=== PATIENT | female | born 1975 | race Caucasian/White ===

== ENCOUNTER 2018-08-09 08:47 | Day surgery (SDC) | payer BC ==
[2018-08-09] MEDS: SOD CHLORIDE 0.9% 1,000 ML IV (10:18)
[2018-08-09] MEDS ORDERED: CEFAZOLIN 1 GM/50 ML (PMX) 50 ML IVPB (14:47)
[2018-08-09] MEDS: CEFAZOLIN 1 GM/50 ML (PMX) 50 ML IVPB (14:48)
[2018-08-09] MEDS: LIDOCAINE 1%/EPI (1:100,000) (MDV) 20 ML (15:09)
[2018-08-09] MEDS: FENTAnyl 50 MCG/ML VIAL (15:12)
[2018-08-09] MEDS ORDERED: LIDOCAINE 1%/EPI (1:100,000) (MDV) 20 ML (15:22)
[2018-08-09] MEDS: POLYMYXIN/BACITRACIN 1L IRRIG IRR (15:40)
[2018-08-09] MEDS: HEPARIN 1000 UNITS/ML 10 ML INJ (15:44)
[2018-08-09] MEDS: ACETAMINOPHEN 325 MG TAB PO (17:34)
== END 2018-08-09 18:10 | disposition home or self-care (01) ==
LOC: RAD 08:47 → SDS 08:47 → RAD 18:10
DX: C50.911 Malignant neoplasm of unspecified site of right female breast (principal); C50.912 Malignant neoplasm of unspecified site of left female breast
CPT/HCPCS: 36561; 76942

== ENCOUNTER 2018-09-20 14:22 | Inpatient (IN) | payer BC ==
[2018-09-20] MEDS: PIPER-TAZO 3.375 GM IV (PMX) 100 ML IVPB ×2 (15:26→23:31)
[2018-09-20] MEDS: SODIUM CHLORIDE 0.9% 1L BAG IV* (15:26)
[2018-09-20 15:34] LABS: WHITE BLOOD COUNT 8.1 10^3/ul (4.8-10.8)
[2018-09-20 15:34] LABS: ABNORMAL IP MESSAGE 1; HEMATOCRIT 24.4 % (37.0-47.0); HEMOGLOBIN 8.1 g/dl (12.0-16.0); MEAN CORPUSCULAR HEMOGLOBIN 25.8 pg (29.0-33.0); MEAN CORPUSCULAR HGB CONC 33.2 g/dl (32.0-37.0); MEAN CORPUSCULAR VOLUME 77.7 fl (82.0-101.0); MEAN PLATELET VOLUME 12.1 fl (7.4-10.4); NUCLEATED RED BLOOD CELLS% 0.4 /100WBC (0.0-0.0); PLATELET COUNT 136 10^3/UL (140-415); RED BLOOD COUNT 3.14 10^6/ul (4.20-5.40); RED CELL DISTRIBUTION WIDTH 18.8 % (11.5-14.5)
[2018-09-20 15:50] LABS: ADD MAN DIFF? YES; POSITIVE DIFF @See below
[2018-09-20] MEDS: VANCOMYCIN 1 GM (PMX) 250 ML IVPB (15:51)
[2018-09-20 15:56] LABS: ALANINE AMINOTRANSFERASE 25 IU/L (13-69); ALBUMIN 3.6 g/dl (3.3-4.9); ALBUMIN/GLOBULIN RATIO 1.12; ALKALINE PHOSPHATASE 85 IU/L (42-121); ANION GAP 15 (5-13); ASPARTATE AMINO TRANSFERASE 29 IU/L (15-46); BILIRUBIN,INDIRECT 0.4 mg/dl (0-1.1); BILIRUBIN,TOTAL 0.4 mg/dl (0.2-1.3); BLOOD UREA NITROGEN 11 mg/dl (7-20); CALCIUM 8.7 mg/dl (8.4-10.2); CARBON DIOXIDE 21 mmol/L (21-31); CHLORIDE 105 mmol/L (97-110); CREATININE 1.11 mg/dl (0.44-1.00); Estimated GFR 53 mL/min (>60); GLUCOSE 110 mg/dl (70-220); SODIUM 141 mmol/L (135-144); TOTAL PROTEIN 6.8 g/dl (6.1-8.1)
[2018-09-20 16:11] LABS: POTASSIUM 2.2 mmol/L (3.5-5.1)
[2018-09-20 16:18] LABS: INR 1.25; PROTIME 15.8 Sec (11.9-14.9); PT RATIO 1.2
[2018-09-20 16:38] LABS: URINE BLOOD (Dip) POC 1+ (NEGATIVE); URINE GLUCOSE (Dip) POC Negative (NEGATIVE); URINE KETONES (Dip) POC Trace (NEGATIVE); URINE LEUKOCYTE EST (Dip) POC Negative (NEGATIVE); URINE NITRITE (Dip) POC Negative (NEGATIVE); URINE TOTAL PROTEIN POC 2+ (NEGATIVE)
[2018-09-20 16:52] LABS: ADD UMIC YES; UR ASCORBIC ACID NEGATIVE (NEGATIVE); UR BACTERIA FEW /HPF (NONE SEEN); UR BILIRUBIN (Dip) NEGATIVE (NEGATIVE); UR BLOOD (Dip) 1+ mg/dL (NEGATIVE); UR CLARITY CLOUDY (CLEAR); UR COLOR AMBER (YELLOW); UR GLUCOSE (Dip) NEGATIVE (NEGATIVE); UR GRANULAR CAST FEW /HPF (NONE SEEN); UR KETONES (Dip) TRACE mg/dL (NEGATIVE); UR LEUKOCYTE ESTERASE (Dip) NEGATIVE Leu/ul (NEGATIVE); UR NITRITE (Dip) NEGATIVE (NEGATIVE); UR RBC 6 /HPF (0-5); UR SPECIFIC GRAVITY (Dip) 1.028 (1.003-1.030); UR SQUAMOUS EPITHELIAL CELL MODERATE /HPF (FEW); UR TOTAL PROTEIN (Dip) 2+ mg/dl (NEGATIVE); UR UROBILINOGEN (Dip) NEGATIVE (NEGATIVE); UR WBC 25 /HPF (0-5)
[2018-09-20 17:02] LABS: MAGNESIUM 1.5 mg/dl (1.7-2.5)
[2018-09-20] MEDS: POTASSIUM CHLORIDE 100 ML IVPB ×3 (17:03→22:24)
[2018-09-20] MEDS: POTASSIUM CHLORIDE (SR) 20 MEQ TAB PO (17:04)
[2018-09-20] MEDS: MAGNESIUM OXIDE 400 MG TAB PO (18:56)
[2018-09-20 19:29] LABS: ANION GAP 10 (5-13); BLOOD UREA NITROGEN 10 mg/dl (7-20); CALCIUM 7.9 mg/dl (8.4-10.2); CARBON DIOXIDE 23 mmol/L (21-31); CHLORIDE 107 mmol/L (97-110); CREATININE 0.89 mg/dl (0.44-1.00); Estimated GFR > 60 mL/min (>60); GLUCOSE 111 mg/dl (70-220); SODIUM 140 mmol/L (135-144)
[2018-09-20 19:30] LABS: LACTIC ACID 0.9 mmol/L (0.5-2.0)
[2018-09-20] MEDS ORDERED: NACL 0.9% 3 ML SYG IV (19:30)
[2018-09-20] MEDS ORDERED: VANCOMYCIN IV PER PHARMACY XX (19:30)
[2018-09-20 19:33] LABS: POTASSIUM 2.8 mmol/L (3.5-5.1)
[2018-09-20 20:31] LABS: ANISOCYTOSIS 1+ (0-0); BAND NEUTROPHILS #M 0.3 10^3/ul (0.0-0.6); BAND NEUTROPHILS % (M) 4 % (0-4); ERYTHROBLAST% (NRBC) (M) 1 % (0-0); GIANT THROMBO% (M) 5 % (0-0); METAMYELOCYTES %M 1 % (0-0); MICROCYTOSIS 1+ (0-0); MONOCYTE #M 0.2 10^3/ul (0.3-0.9); MONOCYTES % (M) 3 % (0-11); MYELOCYTES % (M) 1 % (0-0); OVALOCYTES 1+ (0-0); PLASMAC%(M) 1 % (0); PLATELET ESTIMATE NORMAL; POIKILOCYTOSIS 1+ (0-0); POLYCHROMASIA 2+ (0-0); SEG NEUT #M 7.3 10^3/ul (1.6-7.5); SEGMENTED NEUTROPHILS (M) % 90 % (39-77); SMUDGE%M 6 % (0-0); TEAR DROP CELLS 1+ (0-0)
[2018-09-20] MEDS: ACETAMINOPHEN 325 MG TAB PO (21:05)
[2018-09-20] MEDS: SOD CHLORIDE 0.9% 500 ML IV (21:06)
[2018-09-21] MEDS: VANCOMYCIN HCL 1.5 GM in SOD CHLORIDE 0.9% 250 ML IVPB ×3 (00:27→23:00)
[2018-09-21] MEDS: POTASSIUM CHLORIDE 100 ML IVPB (00:31)
[2018-09-21] MEDS: ACETAMINOPHEN 325 MG TAB PO ×2 (03:05→13:43)
[2018-09-21] MEDS: METOPROLOL 5 MG INJ IV (03:19)
[2018-09-21] MEDS: PIPER-TAZO 3.375 GM IV (PMX) 100 ML IVPB ×3 (05:20→21:38)
[2018-09-21 05:43] LABS: ANION GAP 7 (5-13); BLOOD UREA NITROGEN 11 mg/dl (7-20); CALCIUM 7.6 mg/dl (8.4-10.2); CARBON DIOXIDE 21 mmol/L (21-31); CHLORIDE 112 mmol/L (97-110); CREATININE 1.16 mg/dl (0.44-1.00); Estimated GFR 51 mL/min (>60); GLUCOSE 118 mg/dl (70-220); SODIUM 140 mmol/L (135-144)
[2018-09-21 06:18] LABS: POTASSIUM 2.9 mmol/L (3.5-5.1)
[2018-09-21] MEDS: POTASSIUM CHLORIDE (SR) 20 MEQ TAB PO ×2 (06:42→15:29)
[2018-09-21 07:06] LABS: HEMOGLOBIN A1C 5.9 % (0-5.9)
[2018-09-21 13:48] LABS: ANION GAP 10 (5-13); BLOOD UREA NITROGEN 14 mg/dl (7-20); CALCIUM 7.9 mg/dl (8.4-10.2); CARBON DIOXIDE 18 mmol/L (21-31); CHLORIDE 115 mmol/L (97-110); CREATININE 1.68 mg/dl (0.44-1.00); Estimated GFR 33 mL/min (>60); GLUCOSE 97 mg/dl (70-220); POTASSIUM 3.3 mmol/L (3.5-5.1); SODIUM 143 mmol/L (135-144)
[2018-09-21 14:57] LABS: MAGNESIUM 1.6 mg/dl (1.7-2.5)
[2018-09-21] MEDS: SOD CHLORIDE 0.9% 1,000 ML IV (15:00)
[2018-09-21] MEDS ORDERED: POLYMYXIN/BACITRACIN 1L IRRIG IRR (16:30)
[2018-09-21] MEDS ORDERED: MIDAZOLAM 1 MG/ML 2 ML INJ (16:34)
[2018-09-21] MEDS ORDERED: FENTAnyl 50 MCG/ML VIAL (16:34)
[2018-09-21 23:11] LABS: VANCOMYCIN,TROUGH 24.8 ug/ml (10.0-20.0)
[2018-09-22] MEDS: PIPER-TAZO 3.375 GM IV (PMX) 100 ML IVPB (05:21)
[2018-09-22 06:28] LABS: ANION GAP 13 (5-13); BLOOD UREA NITROGEN 21 mg/dl (7-20); CALCIUM 8.1 mg/dl (8.4-10.2); CARBON DIOXIDE 17 mmol/L (21-31); CHLORIDE 115 mmol/L (97-110); CREATININE 2.88 mg/dl (0.44-1.00); Estimated GFR 18 mL/min (>60); GLUCOSE 91 mg/dl (70-220); MAGNESIUM 1.8 mg/dl (1.7-2.5); POTASSIUM 3.4 mmol/L (3.5-5.1); SODIUM 145 mmol/L (135-144)
[2018-09-22 07:52] LABS: ADD UMIC YES; UR AMORPHOUS CRYSTAL FEW /HPF (NONE SEEN); UR ASCORBIC ACID NEGATIVE (NEGATIVE); UR BACTERIA FEW /HPF (NONE SEEN); UR BILIRUBIN (Dip) NEGATIVE (NEGATIVE); UR BLOOD (Dip) 1+ mg/dL (NEGATIVE); UR CLARITY CLOUDY (CLEAR); UR COLOR YELLOW (YELLOW); UR GLUCOSE (Dip) NEGATIVE (NEGATIVE); UR KETONES (Dip) NEGATIVE (NEGATIVE); UR LEUKOCYTE ESTERASE (Dip) NEGATIVE Leu/ul (NEGATIVE); UR NITRITE (Dip) NEGATIVE (NEGATIVE); UR RBC 3 /HPF (0-5); UR SPECIFIC GRAVITY (Dip) 1.009 (1.003-1.030); UR SQUAMOUS EPITHELIAL CELL FEW /HPF (FEW); UR TOTAL PROTEIN (Dip) 1+ mg/dl (NEGATIVE); UR UROBILINOGEN (Dip) NEGATIVE (NEGATIVE); UR WBC 7 /HPF (0-5)
[2018-09-22 07:58] LABS: POTASSIUM,URINE RANDOM 21.2 mmol/L (25-125)
[2018-09-22 08:07] LABS: SODIUM,URINE RANDOM 53 mmol/L (30-90)
[2018-09-22] MEDS: ACETAMINOPHEN 325 MG TAB PO (09:07)
[2018-09-22] MEDS: POTASSIUM CHLORIDE (SR) 20 MEQ TAB PO (10:03)
[2018-09-22] MEDS: SOD CHLORIDE 0.45% 1,000 ML IV (10:04)
[2018-09-22] MEDS: CEFAZOLIN 1 GM/50 ML (PMX) 50 ML IVPB (20:33)
[2018-09-23] MEDS: SOD CHLORIDE 0.45% 1,000 ML IV ×3 (05:30→21:59)
[2018-09-23 06:23] LABS: WHITE BLOOD COUNT 6.7 10^3/ul (4.8-10.8)
[2018-09-23 06:23] LABS: ABNORMAL IP MESSAGE 1; HEMATOCRIT 21.3 % (37.0-47.0); HEMOGLOBIN 7.3 g/dl (12.0-16.0); MEAN CORPUSCULAR HEMOGLOBIN 25.6 pg (29.0-33.0); MEAN CORPUSCULAR HGB CONC 34.3 g/dl (32.0-37.0); MEAN CORPUSCULAR VOLUME 74.7 fl (82.0-101.0); PLATELET COUNT 182 10^3/UL (140-415); RED BLOOD COUNT 2.85 10^6/ul (4.20-5.40); RED CELL DISTRIBUTION WIDTH 19.8 % (11.5-14.5)
[2018-09-23 06:56] LABS: POSITIVE DIFF @See below
[2018-09-23 06:57] LABS: ADD MAN DIFF? YES
[2018-09-23 08:00] LABS: ANION GAP 12 (5-13); Estimated GFR 16 mL/min (>60)
[2018-09-23 08:15] LABS: BLOOD UREA NITROGEN 22 mg/dl (7-20); CALCIUM 8.6 mg/dl (8.4-10.2); CARBON DIOXIDE 16 mmol/L (21-31); CHLORIDE 116 mmol/L (97-110); CREATININE 3.21 mg/dl (0.44-1.00); GLUCOSE 92 mg/dl (70-220); MAGNESIUM 2.1 mg/dl (1.7-2.5); PHOSPHORUS 3.5 mg/dl (2.5-4.9); POTASSIUM 3.7 mmol/L (3.5-5.1); SODIUM 144 mmol/L (135-144)
[2018-09-23] MEDS: CEFAZOLIN 1 GM/50 ML (PMX) 50 ML IVPB ×2 (08:41→21:59)
[2018-09-23 12:27] LABS: ANISOCYTOSIS 3+ (0-0); BAND NEUTROPHILS #M 0.6 10^3/ul (0.0-0.6); BAND NEUTROPHILS % (M) 9 % (0-4); GIANT THROMBO% (M) 1 % (0-0); LYMPHOCYTES #M 0.7 10^3/ul (0.8-2.9); LYMPHOCYTES % (M) 11 % (15-51); MICROCYTOSIS 2+ (0-0); MONOCYTE #M 0.2 10^3/ul (0.3-0.9); MONOCYTES % (M) 3 % (0-11); PLATELET ESTIMATE NORMAL; POIKILOCYTOSIS 3+ (0-0); POLYCHROMASIA 3+ (0-0); SEG NEUT #M 5.2 10^3/ul (1.6-7.5); SEGMENTED NEUTROPHILS (M) % 77 % (39-77); SMUDGE%M 7 % (0-0)
[2018-09-23 15:02] LABS: CREATININE, RANDOM URINE 59 mg/dL (20-275); MICROALBUMIN/CREATININE RATIO 68 (<30)
[2018-09-24 06:16] LABS: ABNORMAL IP MESSAGE 1; HEMATOCRIT 19.1 % (37.0-47.0); MEAN CORPUSCULAR HEMOGLOBIN 25.6 pg (29.0-33.0); MEAN CORPUSCULAR HGB CONC 35.1 g/dl (32.0-37.0); MEAN CORPUSCULAR VOLUME 72.9 fl (82.0-101.0); MEAN PLATELET VOLUME 12.2 fl (7.4-10.4); PLATELET COUNT 202 10^3/UL (140-415); RED BLOOD COUNT 2.62 10^6/ul (4.20-5.40); RED CELL DISTRIBUTION WIDTH 19.3 % (11.5-14.5)
[2018-09-24 06:16] LABS: WHITE BLOOD COUNT 4.5 10^3/ul (4.8-10.8)
[2018-09-24 06:18] LABS: POSITIVE DIFF @See below
[2018-09-24 06:20] LABS: ADD MAN DIFF? YES; HEMOGLOBIN 6.7 g/dl (12.0-16.0)
[2018-09-24 06:40] LABS: ANION GAP 10 (5-13); BLOOD UREA NITROGEN 18 mg/dl (7-20); CALCIUM 8.5 mg/dl (8.4-10.2); CARBON DIOXIDE 18 mmol/L (21-31); CHLORIDE 114 mmol/L (97-110); CREATININE 2.58 mg/dl (0.44-1.00); Estimated GFR 20 mL/min (>60); GLUCOSE 97 mg/dl (70-220); MAGNESIUM 1.8 mg/dl (1.7-2.5); PHOSPHORUS 3.6 mg/dl (2.5-4.9); POTASSIUM 3.1 mmol/L (3.5-5.1); SODIUM 142 mmol/L (135-144)
[2018-09-24] MEDS: LEVOFLOXACIN 500 MG TAB PO (08:10)
[2018-09-24] MEDS: POTASSIUM CHLORIDE (SR) 20 MEQ TAB PO (08:10)
[2018-09-24] MEDS: RIFAMPIN 300 MG CAP PO (08:11)
[2018-09-24] MEDS: SOD CHLORIDE 0.45% 1,000 ML IV (09:15)
[2018-09-24 10:02] LABS: ADD MAN DIFF? NO
[2018-09-24 10:04] LABS: WHITE BLOOD COUNT 4.9 10^3/ul (4.8-10.8)
[2018-09-24 10:04] LABS: ABNORMAL IP MESSAGE 1; HEMATOCRIT 19.8 % (37.0-47.0); LYMPHOCYTES # 0.5 10^3/ul (0.8-2.9); LYMPHOCYTES % 9.5 % (15.0-51.0); MEAN CORPUSCULAR HEMOGLOBIN 24.8 pg (29.0-33.0); MEAN CORPUSCULAR HGB CONC 33.8 g/dl (32.0-37.0); MEAN CORPUSCULAR VOLUME 73.3 fl (82.0-101.0); MEAN PLATELET VOLUME 12.3 fl (7.4-10.4); MONOCYTE # 0.4 10^3/ul (0.3-0.9); MONOCYTES % 8.9 % (0.0-11.0); NEUTROPHIL # 3.9 10^3/ul (1.6-7.5); NEUTROPHILS % 79.8 % (39.0-77.0); PLATELET COUNT 231 10^3/UL (140-415); RED CELL DISTRIBUTION WIDTH 19.5 % (11.5-14.5)
[2018-09-24 10:24] LABS: HEMOGLOBIN 6.7 g/dl (12.0-16.0); POSITIVE DIFF @See below
[2018-09-24 10:57] LABS: IMMEDIATE SPIN CROSSMATCH 1 1
[2018-09-24 11:16] LABS: ANISOCYTOSIS 1+ (0-0); BAND NEUTROPHILS % (M) 1 % (0-4); BASOPHILS % (M) 1 % (0-2); GIANT THROMBO% (M) 7 % (0-0); LYMPHOCYTES #M 0.2 10^3/ul (0.8-2.9); LYMPHOCYTES % (M) 5 % (15-51); MICROCYTOSIS 1+ (0-0); MONOCYTE #M 0.1 10^3/ul (0.3-0.9); MONOCYTES % (M) 4 % (0-11); OVALOCYTES 1+ (0-0); PLATELET ESTIMATE NORMAL; POIKILOCYTOSIS 1+ (0-0); SEGMENTED NEUTROPHILS (M) % 89 % (39-77); SMUDGE%M 10 % (0-0)
[2018-09-25] MEDS ORDERED: LEVOFLOXACIN 250 MG TAB PO (06:00)
== END 2018-09-24 17:15 | disposition home health service (06) | DRG 314 ==
LOC: E/R 14:22 → 6WM 16:56
PROC: 0JPT0WZ Removal of Totally Implantable Vascular Access Device from Trunk Subcutaneous Tissue and Fascia, Open Approach (ICD-10-PCS; principal; 2018-09-24)
PROC: 30233N1 Transfusion of Nonautologous Red Blood Cells into Peripheral Vein, Percutaneous Approach (ICD-10-PCS; 2018-09-24)
DX: T80.211A Bloodstream infection due to central venous catheter, initial encounter (principal); A41.01 Sepsis due to Methicillin susceptible Staphylococcus aureus; N17.0 Acute kidney failure with tubular necrosis; E87.2 Acidosis; E87.0 Hyperosmolality and hypernatremia; C77.3 Secondary and unspecified malignant neoplasm of axilla and upper limb lymph nodes; D69.6 Thrombocytopenia, unspecified; E83.42 Hypomagnesemia; C50.912 Malignant neoplasm of unspecified site of left female breast; C50.911 Malignant neoplasm of unspecified site of right female breast; E87.6 Hypokalemia; D64.9 Anemia, unspecified; Y84.8 Other medical procedures as the cause of abnormal reaction of the patient, or of later complication, without mention of misadventure at the time of the procedure; Y92.019 Unspecified place in single-family (private) house as the place of occurrence of the external cause
CPT/HCPCS: 36430; 71045; 76775; 80048; 80053; 80202; 81001; 81003; 81025; 82043; 83036; 83605; 83735; 84100; 84133; 84155; 84300; 84484; 85025; 85610; 85730; 86850; 86900; 86901; 86920; 87040-91; 87070; 87086; 93005; 96365; 96375; 99285-25

== ENCOUNTER 2018-12-25 12:39 | Emergency (ER) | payer BC ==
[2018-12-25] MEDS: KETOROLAC 15 MG INJ IV (14:36)
[2018-12-25] MEDS: IOHEXOL 300MG/ML 150 ML BTL (16:24)
[2018-12-25] MEDS: SOD CHLORIDE 0.9% 100 ML (16:24)
== END 2018-12-25 18:17 | disposition home or self-care (01) ==
LOC: E/R 12:39
DX: G89.18 Other acute postprocedural pain (principal); R40.2142 Coma scale, eyes open, spontaneous, at arrival to emergency department; R40.2252 Coma scale, best verbal response, oriented, at arrival to emergency department; R40.2362 Coma scale, best motor response, obeys commands, at arrival to emergency department; R07.9 Chest pain, unspecified; Z90.13 Acquired absence of bilateral breasts and nipples
CPT/HCPCS: 36415; 71260; 80048; 81025; 85025; 93005; 96374; 99285-25